=== PATIENT | female | born 1950 | race Caucasian/White ===

== ENCOUNTER 2024-11-29 14:37 | Outpatient (CLI) | payer OTHER, SELFPAY | END 2024-11-29 14:38 | disposition home or self-care (01) | DX: R10.10 Upper abdominal pain, unspecified (principal); R91.1 Solitary pulmonary nodule; J98.11 Atelectasis; R93.421 Abnormal radiologic findings on diagnostic imaging of right kidney; K57.90 Diverticulosis of intestine, part unspecified, without perforation or abscess without bleeding | CPT/HCPCS: 74177; Q9967 ==